=== PATIENT | female | born 1960 | race Caucasian/White ===

== ENCOUNTER 2020-02-26 12:12 | Emergency (ER) | payer OTHER ==
[~2020-02-26] VITALS: Ht 177.8 cm; Wt 88.5 kg
[2020-02-26] MEDS ORDERED: ONDA4ODT MM (13:02)
[2020-02-26] MEDS ORDERED: OXYACE7.5T PO (13:02)
[2020-02-26] MEDS ORDERED: CRUTCH2 XX (13:03)
== END 2020-02-26 14:25 | disposition home or self-care (01) ==
LOC: ER 12:12
DX: S82.231A Displaced oblique fracture of shaft of right tibia, initial encounter for closed fracture (principal); S89.301A Unspecified physeal fracture of lower end of right fibula, initial encounter for closed fracture; E78.5 Hyperlipidemia, unspecified; Z88.5 Allergy status to narcotic agent; W01.0XXA Fall on same level from slipping, tripping and stumbling without subsequent striking against object, initial encounter
CPT/HCPCS: 29505; 73590; 96374-59; 96375-59; 96376-59; 99284-25; J1170; J2405